=== PATIENT | male | born 1965 | race Caucasian/White ===

== ENCOUNTER 2021-12-27 12:21 | Emergency (ER) | payer BC ==
[~2021-12-27] VITALS: Ht 185.4 cm; Wt 167.8 kg
[2021-12-27 12:36] VITALS: BP_SYST 170
--- NOTE | 2021-12-27 12:47 | NUR ---
Patient to ER bed 2 to gown for evaluation. Side rails up. Report given to Kamari MARAVILLA.
[2021-12-27] MEDS ORDERED: OXYCODONE/ACETAMINOPHEN 5-325 TABLET PO ONE (13:30)
--- NOTE | 2021-12-27 13:39 | NUR ---
PERCOCET PO GIVEN FOR RIGHT JAW ACHING PAIN 10/10. EXTRA FLUIDS GIVEN AND ENCOURAGED.
--- NOTE | 2021-12-27 13:59 | NUR ---
DR. FRANCOIS AT BEDSIDE TO ASSESS PT.
[2021-12-27] MEDS ORDERED: MORPHINE 4 MG INJ. 4 MG/ML VIAL IVP ONE (14:15)
[2021-12-27] MEDS ORDERED: ONDANSETRON HCL 4 MG/2 ML VIAL IVP ONE (14:15)
[2021-12-27] MEDS ORDERED: AMPICILLIN SODIUM/SULBACTAM NA 3 GM in NS 100 ML IV ONE (14:15)
[2021-12-27 14:27] LABS: BASOPHILS % (AUTO) 0.3 % (0.0-2.0); EOSINOPHILS # (AUTO) 0.1 K/uL (0.0-0.4); HEMATOCRIT 38.1 % (36-54); HEMOGLOBIN 12.9 g/dL (14.0-18.0); LYMPHOCYTES # (AUTO) 1.9 K/uL (1.0-5.5); LYMPHOCYTES % (AUTO) 17.6 % (20.5-51.5); MEAN CORPUSCULAR HEMOGLOBIN 28 pg (27-31); MEAN CORPUSCULAR HGB CONC 34 % (32-36); MEAN CORPUSCULAR VOLUME 84 fL (79.0-98.0); MONOCYTES # (AUTO) 0.8 K/uL (0.0-1.0); MONOCYTES % (AUTO) 7.1 % (1.7-9.3); PLATELET COUNT (AUTO) 409 K/uL (130-430); RED BLOOD CELL COUNT(AUTO) 4.53 MIL/uL (4.2-6.2); RED CELL DISTRIBUTION WIDTH 14.4 % (9.0-15.0); WHITE BLOOD COUNT (AUTO) 10.8 K/uL (4.8-10.8)
[2021-12-27 14:44] LABS: CALCIUM 8.6 mg/dL (8.4-11.0); CREATININE 2.22 mg/dL (0.55-1.30); POTASSIUM 4.2 mmol/L (3.5-5.1)
[2021-12-27 14:50] LABS: ALBUMIN 2.8 g/dL (3.4-4.8); TOTAL BILIRUBIN 0.2 mg/dL (0.0-1.0)
--- NOTE | 2021-12-27 14:58 | NUR ---
# 20 gauge angiocath placed to right ac. Use of asceptic technique. Opsite placed over site. Blood return noted. Blood for lab drawn from site. Flushed with 10 cc of normal saline. No evidence of infiltration noted. Patient tolerated well.
[2021-12-27 15:04] LABS: ERYTHROCYTE SEDIMENTATION RATE 65 MM/HR (0-15)
[2021-12-27] MEDS ORDERED: AMPICILLIN SODIUM/SULBACTAM NA 3 GM VIAL ONE (15:05)
[2021-12-27] MEDS ORDERED: LIDOCAINE/EPI 1% 1:100000 20 ML VIAL INJ ONE (16:45)
[2021-12-27] MEDS ORDERED: HYDROmorphone 1 MG/ML INJ. CARTRIDGE IVP ONE (16:45)
[2021-12-27] MEDS ORDERED: CLIN-142 PO (17:27)
[2021-12-27] MEDS ORDERED: HYDR-3917 PO (17:27)
[2021-12-27 19:39] VITALS: BP_SYST 140
--- NOTE | 2021-12-27 19:44 | NUR ---
Received report from Kamari gordon DC pt Patient given written and verbal discharge instructions and verbalizes understanding. ER MD discussed with patient the results and treatment provided. Patient in stable condition. ID arm band removed. IV catheter removed intact and dressing applied, no active bleeding. Rx given. Patient educated on pain management and to follow up with PMD. Pain Scale. Opportunity for questions provided and answered. Medication side effect fact sheet provided.
== END 2021-12-27 19:39 | disposition home or self-care (01) ==
LOC: SED 12:21
DX: K12.2 Cellulitis and abscess of mouth (principal); R22.0 Localized swelling, mass and lump, head; E11.22 Type 2 diabetes mellitus with diabetic chronic kidney disease; N18.6 End stage renal disease; Z79.899 Other long term (current) drug therapy
CPT/HCPCS: 99284; 96365; 10060; 96375; 70486; 80053; 85025; 85651; 87040; 36415; 76376; 83605; J0295; J2405; J1170; J2270